=== PATIENT | female | born 1935 | race Caucasian/White ===

== ENCOUNTER → 2023-12-05 08:50 | Outpatient (REF) | payer BC, SELFPAY ==
[2023-12-05 10:26] LABS: Hematocrit 43.2 % (37.0-47.0); Hemoglobin 14.8 g/dL (12.0-16.0); Mean Corp Hgb Conc. 34.3 g/dL (33.0-37.0); Mean Corpuscular Hgb 28.4 pg (27.0-31.0); Mean Corpuscular Volume 82.9 fL (81.0-99.0); Mean Platelet Volume 9.4 fL (7.4-10.4); Platelet Count 273 10^3/uL (130-400); Red Blood Cell Count 5.21 10^6/uL (4.20-5.40); Red Cell Dist. Width 14.3 % (11.5-14.5); White Blood Cell Count 8.2 10^3/uL (4.8-10.8)
[2023-12-05 10:36] LABS: Uric Acid 4.3 mg/dl (2.5-6.2)
== END ==
LOC: OLABN 08:50
PROVIDERS: ATTENDING PHYSICIAN Student in an Organized Health Care Education/Training Program
DX: I10 Essential (primary) hypertension (principal)
CPT/HCPCS: 36415; 84550; 85027

== ENCOUNTER → 2023-12-08 10:28 | Outpatient (REF) | payer BC, SELFPAY ==
[2023-12-08 11:23] LABS: ALT (SGPT) 14 U/L (0-35); AST (SGOT) 20 U/L (14-36); Albumin 3.1 g/dl (3.5-5.0); Alkaline Phosphatase 51 U/L (38-126); Blood Urea Nitrogen 19 mg/dl (7-17); Calcium 9.3 mg/dl (8.4-10.2); Carbon Dioxide 22 mmol/L (22-30); Chloride 105 mmol/L (98-107); Glucose 106 mg/dl (70-99); Potassium 4.1 mmol/L (3.5-5.1); Sodium 138 mmol/L (135-145); Total Bilirubin 0.8 mg/dl (0.2-1.3); eGFR > 60.00
== END ==
LOC: OLABN 10:28
PROVIDERS: ATTENDING PHYSICIAN Student in an Organized Health Care Education/Training Program
DX: I10 Essential (primary) hypertension (principal)
CPT/HCPCS: 36415; 80053

== ENCOUNTER 2023-12-27 06:23 | Day surgery (SDC) | payer OTHER, SELFPAY ==
[2023-12-27] VITALS (14 sets, daily range): BP systolic 136–176; BP diastolic 66–89; BMI 27.5
[2023-12-27 07:21] LABS: Glucose - Point of Care 113 mg/dl (70-99)
[2023-12-27 09:29] LABS: Glucose - Point of Care 152 mg/dl (70-99)
--- NOTE | 2023-12-27 11:02 | ITS.CL.ABL ---
[employer] Consultant - Ablation
Ablation
Procedure Report:
Atrio-Ventricular Junction Ablation:
Ms. Bhatti is a very pleasant�88 yr old woman with medical history significant for permanent atrial fibrillation s/p single chamber PPM placement 03/21/23. She is recommended for AV node ablation for control of her atrial fibrillation rapid
ventricular response.
Date of the Procedure:
12/27/2023
Indications:
Permanent atrial fibrillation and rapid ventricular response
�
Pre-Operative Diagnosis:
Permanent atrial fibrillation and rapid ventricular response
�
Post-Operative Diagnosis:
Permanent atrial fibrillation and rapid ventricular response
�
Procedure Performed:
AVJ / AV nacny ablation
�
Performing Physician:
Mitul Hampton MD
�
Anesthesia:
See anesthesia records
�
Detailed Description of the Procedure:
Written informed consent was obtained from the patient after a full explanation of the risks and benefits of the procedure including the risks of sedation and anesthesia. The patient was brought to the electrophysiology laboratory in stable
condition in fasting state. Continuous electrocardiographic and hemodynamic monitoring was initiated.
The initial rhythm was atrial fibrillation.
The procedure site was meticulously prepared with surgical scrub and allowed to dry with no pooling. Sterile draping was applied to cover the procedure site. The image intensifier was draped with sterile bag and positioned over the patient.
Device interrogation and modifications:
The device was interrogated. The PPM is working normally with adequate threshold of 0.75 V @ 0.4ms. The PPM was switched to VVI 60 bpm.
The device remained like this throughout the entire procedure and was turned back to home setting at the end of the case @VVIR 60 bpm.
Sheath and Catheter Placement:
After infusion of local anesthetic, vascular access was obtained under ultrasound guidance and sheaths were placed over guide wire as detailed below.
�
Sheaths:
��������������� - 8 Fr sheath in right femoral vein
�
Catheters:
��������������� - Saphire 4 mm ablation catheter
�
Following the sheath placement, EP study was done to identify the His location.� Patient is on the chronic anticoagulation. Heparin 3000 units were given.
The EP study showed atrial fibrillation and His location was identified. RV lead was pacing adequately with AF with AV nancy conduction noted.
�
AV nancy ablation:
Cardiac anatomy as established. HIS cloud was established. The triangle of Herzog was marked with ablation catheter.
Using Sapphire catheter (4mm -non-irrigated radiofrequency ablation catheter), the catheter was placed at the His locations and using 50watts of energy at 50degree temperature, the AV node was ablated for 45 seconds. The atrial fibrillation with AV
conduction stopped and patient was paced in the RV via the RV pacing lead. Further additional consolidation lesions were applied around that area.
Patient was observed for 15-20 minutes with no sign of AV node recovery.
Post Ablation EP study:
The EP study was done via the device and atrial fibrillation noted at the atrium and RV pacing with no AV conduction.
The device was reprogrammed to its initial settings. Patient was noted to be RV paced without any irregular heartbeat.
Procedure End
Following the completion of the procedure, the catheter was removed. The sheaths were removed and hemostasis achieved manual compression and a fig of 8 suture was applied.
Recommendations:
��������������� Continue home medications
�
Estimated Blood loss:
<5 cc
�
Specimens Removed:
None.
�
Implants / Devices:
None
�
Urine output:
None
�
Packs / Drains/ Tubes:
None
�
Instrument / Sponge Count Correct:
Yes
�
Complications of the Procedure:
None
�
Condition of Patient at Time of Transfer:
Hemodynamically stable with no neurological or vascular compromise.
�
Summary:
Successful AV nancy ablation
== END 2023-12-27 12:55 | disposition home or self-care (01) ==
LOC: CATH 06:23
PROVIDERS: ATTENDING PHYSICIAN Internal Medicine Cardiovascular Disease; FAMILY PHYSICIAN Student in an Organized Health Care Education/Training Program
DX: I48.21 Permanent atrial fibrillation (principal); I10 Essential (primary) hypertension; E78.5 Hyperlipidemia, unspecified; Z95.0 Presence of cardiac pacemaker; E11.9 Type 2 diabetes mellitus without complications; K21.9 Gastro-esophageal reflux disease without esophagitis; Z79.01 Long term (current) use of anticoagulants; Z79.84 Long term (current) use of oral hypoglycemic drugs
CPT/HCPCS: C1894; C1733; 76937; 82962; 93005; 93650

== ENCOUNTER → 2024-01-17 10:44 | Outpatient (REF) | payer OTHER, SELFPAY ==
[2024-01-17 11:06] LABS: Blood Urea Nitrogen 21 mg/dl (7-17); Calcium 9.2 mg/dl (8.4-10.2); Carbon Dioxide 23 mmol/L (22-30); Chloride 105 mmol/L (98-107); Glucose 95 mg/dl (70-99); Potassium 3.7 mmol/L (3.5-5.1); Sodium 136 mmol/L (135-145); eGFR > 60.00
== END ==
LOC: OLABN 10:44
PROVIDERS: ATTENDING PHYSICIAN Student in an Organized Health Care Education/Training Program
DX: I10 Essential (primary) hypertension (principal)
CPT/HCPCS: 36415; 80048

== ENCOUNTER → 2024-01-18 10:31 | Outpatient (REF) | payer OTHER, SELFPAY ==
[2024-01-18 12:10] LABS: Glycohemoglobin (HgbA1c) 6.6 % (4.0-5.6)
== END ==
LOC: OLABN 10:31
PROVIDERS: ATTENDING PHYSICIAN Student in an Organized Health Care Education/Training Program
DX: E11.40 Type 2 diabetes mellitus with diabetic neuropathy, unspecified (principal); Z79.84 Long term (current) use of oral hypoglycemic drugs
CPT/HCPCS: 36415; 83036

== ENCOUNTER → 2024-03-19 12:13 | Outpatient (REF) | payer OTHER, SELFPAY ==
[2024-03-19 13:44] LABS: Blood Urea Nitrogen 19 mg/dl (7-17); Calcium 9.5 mg/dl (8.4-10.2); Carbon Dioxide 19 mmol/L (22-30); Chloride 109 mmol/L (98-107); Glucose 93 mg/dl (70-99); Sodium 138 mmol/L (135-145); eGFR > 60.00
== END ==
LOC: OLABN 12:13
PROVIDERS: ATTENDING PHYSICIAN Student in an Organized Health Care Education/Training Program
DX: I10 Essential (primary) hypertension (principal)
CPT/HCPCS: 36415; 80048

== ENCOUNTER → 2024-04-18 11:08 | Outpatient (REF) | payer OTHER, SELFPAY | LOC: OLABN 11:08 | PROVIDERS: ATTENDING PHYSICIAN Student in an Organized Health Care Education/Training Program | DX: Z00.00 Encounter for general adult medical examination without abnormal findings (principal); Z79.84 Long term (current) use of oral hypoglycemic drugs | CPT/HCPCS: 36415; 83036 ==

== ENCOUNTER → 2024-05-02 10:22 | Outpatient (REF) | payer OTHER, SELFPAY ==
[2024-05-02 12:23] LABS: ALT (SGPT) 13 U/L (0-35); AST (SGOT) 19 U/L (14-36); Albumin 3.4 g/dl (3.5-5.0); Alkaline Phosphatase 52 U/L (38-126); Blood Urea Nitrogen 17 mg/dl (7-17); Calcium 9.5 mg/dl (8.4-10.2); Carbon Dioxide 22 mmol/L (22-30); Chloride 109 mmol/L (98-107); Glucose 85 mg/dl (70-99); Magnesium 1.7 mg/dl (1.6-2.3); Potassium 4.1 mmol/L (3.5-5.1); Sodium 139 mmol/L (135-145); Total Bilirubin 0.7 mg/dl (0.2-1.3); eGFR > 60.00
[2024-05-02 12:35] LABS: NT-proBNP 1560 pg/ml
== END ==
LOC: OLABN 10:22
PROVIDERS: ATTENDING PHYSICIAN Student in an Organized Health Care Education/Training Program
DX: I48.19 Other persistent atrial fibrillation (principal)
CPT/HCPCS: 36415; 80053; 83735; 83880

== ENCOUNTER 2024-05-07 22:32 | Inpatient (IN) | payer OTHER, SELFPAY ==
[2024-05-07] VITALS (8 sets, daily range): BP systolic 130–166; BP diastolic 45–59; BMI 35.7; BMI 35.0
--- NOTE | 2024-05-07 19:11 | ED.GENMED ---
History of Present Illness
General
Chief Complaint: Skin Problem
Source: patient
Exam Limitations: none
Time Seen by Provider: 05/07/24 18:56
History of Present Illness
History of Present Illness:
See MDM
Past History
Past History
ED Past Medical History: Arrthythmia, GERD, HTN, Hypercholesterolemia and NIDDM
ED Past Surgical History: Cardiac
Social History
Tobacco: Non-smoker
Alcohol: None
Phy Exam
Physical Exam
Physical Exam:
See MDM
Course
Orders/Labs/Results
Orders:
Orders
05/07/24 19:11
CeFAZolin 2 GRAM [Ancef] 2 grams in 10 ml IV NOW
05/07/24 19:52
Complete Blood Count/With Diff Urgent
Lactic Acid Q4H
Comment: CANCEL 2nd LACTIC ACID IF 1st LACTIC ACID IS LESS THAN 2
Blood Culture Urgent
ABDULLAHI Source: Blood/Venous
Specimen Description:
05/07/24 20:19
0.9% Sodium Chloride 1000 ml [Nss] 1,000 ml IV BOLUS
05/07/24 20:23
Basic Metabolic Panel Urgent
05/07/24 20:55
Dextrose 50%-Water [Dextrose 50% Syringe] 25 grams IV NOW STA
Abnormal Lab Results
05/07/24 05/07/24
19:52 20:23
WBC 21.7 H 10^3/uL
(4.8-10.8)
RDW 14.8 H %
(11.5-14.5)
Abs Immat Gran (auto) 0.2 H 10^3/uL
(0-0.05)
Absolute Neuts (auto) 18.5 H 10^3/uL
(1.4-6.5)
Absolute Monos (auto) 1.5 H 10^3/uL
(0.1-0.6)
Immature Gran % 0.8 H %
(0-0.5)
Neutrophils % 85.1 H %
(42.2-75.2)
Lymphocytes % 6.8 L %
(20.5-51.1)
Sodium 134 L mmol/L
(135-145)
Chloride 109 H mmol/L
(98-107)
Carbon Dioxide 15 L mmol/L
(22-30)
BUN 27 H mg/dl
(7-17)
Glucose < 30 L* mg/dl
(70-99)
05/07/24 19:52
05/07/24 20:23
Vital Signs
Initial and Last Documented VS:
Initial Vital Signs
Temp Pulse Resp BP Pulse Ox
98.4 F 60 20 166/55 98
05/07/24 17:08 05/07/24 17:08 05/07/24 17:08 05/07/24 17:08 05/07/24 17:08
Last Documented Vital Signs
Temp Pulse Resp BP Pulse Ox
98.4 F 60 25 160/57 95
05/07/24 17:08 05/07/24 20:45 05/07/24 20:45 05/07/24 20:20 05/07/24 20:45
MDM/Problems Addressed
Differential Diagnosis Includes:
HPI and MDM Narrative:
88-year-old female presenting for evaluation of swelling and redness to her left leg. This been ongoing for couple days. Family is concerned because there is a very large blister on the dorsum of the left foot. This has happened in the past that
has required antibiotics. They were going to start antibiotics today but the redness is starting to worsen
On exam, patient is weak and fatigued. She has large amount of cellulitis to the left leg with large blistering to the dorsum of her left foot. The blister was incised with #11 blade and a large amount of yellow serosanguineous fluid was removed
Given the amount of cellulitis, will start IV antibiotics and admit
Physical exam
General: Weak and fatigued
HEENT: protecting airway
Neck: appears supple
CV: No evidence of cyanosis
Resp: No accessory muscle use
Abd: Non-distended
Extremities: No deformities
Neuro: Sleepy but no focal neurodeficits
Psych: Flat affect
Skin: Cellulitis to left leg from knee down with large blistering to left foot. Blistering measuring about 10 cm x 10 cm. Negative Nikolsky sign
Problems Addressed including Acute and Chronic Conditions affecting care:
1. Left leg cellulitis
Acuity: acute
Prognosis: stable
Details: Given the amount of cellulitis and the recent increase in erythema, will start IV antibiotics admit. The blister was incised to relieve the pressure
2. Hyperglycemia
Acuity: acute
Prognosis: unstable
Details: Given the hypoglycemia, patient given amp of dextrose.
Updates
Patient found to be hypoglycemic. Her mental status is declining. Patient given dextrose
Differential Diagnosis (but not limited to): Cellulitis, pemphigoid, gout
Testing considered: X-ray
Drug therapy (if applicable): OTC meds, please see d/c instruction regarding Rx drugs
Amount and/or Complexity of Data Reviewed
Clinical info obtained from: Daughter's
External data reviewed: N/A
Labs I independently reviewed (but not limited to): Leukocytosis, hyperglycemia
Radiology: N/A
Pulse Ox: not hypoxic
EKG independently reviewed: N/A
Button Decorating Machine Operator: Paced rhythm
Critical Care: N/A
Risk of Complication:
Social Determinants of health: Good social support
Discussed with other providers: Hospitalist
Escalation of Care includes Admit/Obs: Given the worsening cellulitis and now with hyperglycemia, will admit
Occasional wrong word or 'sound a like' substitutions may have occurred due to the inherent limitations of voice recognition software. Read the chart carefully and recognize, using context, where substitutions have occurred.
*Critical Care Note
Total Time (30-74mins, 75-104mins- exclusive of procedures): Not Applicable
ED Attending Note
-
Portions of this chart may have been created with voice recognition software.� Occasional wrong word or��sound alike� substitutions may have occurred due to the inherent limitations of voice recognition software.
Discharge Plan
Departure
Patient Disposition: Admit
Date of Disposition: 05/07/24
Time of Disposition: 20:58
Admit to: Telemetry
Presentation/result/management discussed w/ accepting MD/DO: Hospitalist
Discharge Problem:
Cellulitis of leg, Hypoglycemia
Prescriptions:
No Action
latanoprost 0.005 % Drops
1 drp BOTH EYES HS
atorvastatin 40 mg Tablet
40 mg PO QPM
acetaminophen 325 mg Tablet
650 mg PO Q4HPRN PRN (Reason: mild pain/fever>100.4)
magnesium hydroxide [Milk of Magnesia] 400 mg/5 mL Suspension
30 ml PO DAILYPRN PRN (Reason: if no bm x 2 days)
bisacodyl [Dulcolax (bisacodyl)] 10 mg Suppository
10 mg IA DAILYPRN PRN (Reason: if mom ineffective)
nitroglycerin [Nitrostat] 0.4 mg Tablet, Sublingual
0.4 mg SUBLINGUAL Q5MX3 PRN (Reason: chest pain)
dorzolamide-timolol [Cosopt] 22.3-6.8 mg/mL Drops
1 drp BOTH EYES BID@
fenofibrate 160 mg Tablet
160 mg PO HS
apixaban 5 mg Tablet
5 mg PO BID@
potassium chloride 20 mEq Tablet Extended Release
40 meq PO DAILY
metformin 500 mg Tablet
500 mg PO BID@0830,1830
glipizide 5 mg tablet extended release 24hr
5 mg PO DAILY
benazepril 10 mg tablet
10 mg PO DAILY 30 Days Qty: 30 0RF
hydralazine 10 mg tablet
10 mg PO TID@0830,1330,1830
meclizine 12.5 mg Tablet
12.5 mg PO [id number] PRN (Reason: dizziness)
famotidine 20 mg tablet
20 mg PO HS
amlodipine 10 mg tablet
10 mg PO DAILY
cephalexin 500 mg capsule
500 mg PO Q6H
Rx Instructions:
@ 0000, 0600, 1200, 1800
furosemide 20 mg tablet
20 mg PO DAILYPRN PRN (Reason: edema)
fluticasone propionate 50 mcg/actuation Iselin,Suspension
1 spray INTRANASAL TIDPRN PRN (Reason: nasal congestion)
Saccharomyces boulardii 250 mg Capsule
250 mg PO BID
Referrals:
Preston Rivero DO [Family Provider] -
Interventions
Interventions:
*Risk Screen - Suicide Last Done: 05/07/24 17:08
*General Assessment Last Done: 05/07/24 17:08
*Neglect/Abuse Screening Last Done: 05/07/24 17:08
ED- Fall Risk Assessment Last Done: 05/07/24 17:13
*ED COVID-19 Vaccine History Last Done: 05/07/24 17:08
ED-Skin Assessment Last Done: 05/07/24 17:13
Discharge Date and Time
Print Language: MALAY
[2024-05-07] MEDS: ANCEF 10 IV (19:49)
[2024-05-07 19:59] LABS: % Basophils 0.3 % (0-2); % Eosinophils 0.2 % (0-6); % Immature Granulocytes 0.8 % (0-0.5); % Lymphocytes 6.8 % (20.5-51.1); % Monocytes 6.8 % (1.7-9.3); % Neutrophils 85.1 % (42.2-75.2); Absolute Basophils 0.1 10^3/uL (0-0.2); Absolute Immature Granulocytes 0.2 10^3/uL (0-0.05); Absolute Lymphocytes 1.5 10^3/uL (1.2-3.4); Absolute Monocytes 1.5 10^3/uL (0.1-0.6); Absolute Neutrophils 18.5 10^3/uL (1.4-6.5); Hematocrit 41.4 % (37.0-47.0); Hemoglobin 13.9 g/dL (12.0-16.0); Mean Corp Hgb Conc. 33.6 g/dL (33.0-37.0); Mean Corpuscular Hgb 27.8 pg (27.0-31.0); Mean Corpuscular Volume 82.8 fL (81.0-99.0); Nucleated Red Blood Cells % 0 %; Platelet Count 300 10^3/uL (130-400); Red Cell Dist. Width 14.8 % (11.5-14.5); White Blood Cell Count 21.7 10^3/uL (4.8-10.8)
[2024-05-07] MEDS: NSS 1000 IV (20:51)
[2024-05-07 20:55] LABS: Blood Urea Nitrogen 27 mg/dl (7-17); Calcium 8.8 mg/dl (8.4-10.2); Carbon Dioxide 15 mmol/L (22-30); Chloride 109 mmol/L (98-107); Estimated Creatinine Clearance 47 ml/min; Glucose < 30 mg/dl (70-99); Sodium 134 mmol/L (135-145); eGFR > 60.00
[2024-05-07] MEDS: DEXTROSE 50% SYRINGE 25 GRAMS IV (20:56)
--- NOTE | 2024-05-07 21:10 | HPS.HSE ---
Family Physician
-
Family Physician: Preston Rivero, DO
Chief Complaint
-
Erythematous foot to left upper leg with large dorsal blister and pain
History of Present Illness
88-year-old female from [facility] who states she noticed left foot pain today with a large blister and extending erythema up her entire left leg. Her daughter reports she saw her on Tuesday 3 days ago and did not
notice any erythema although the patient was wearing socks. Patient does have profound peripheral neuropathy. She uses a wheelchair to transfer with help of 1. She denies fever, chills, injury, chest pain complication, shortness of, cough,
abdominal pain, nausea, vomiting, diarrhea, urinary symptoms.
She has past medical history permanent A-fib, moderate aortic stenosis, single-chamber permanent pacemaker placement secondary to complete heart block 03/21/2023, DM2, chronic pain syndrome, HTN, HLD, GERD, chronic ambulatory dysfunction, memory
impairment per family, chronic visual impairment, history of UTIs with History of M. Morganii/Enterococcus faecalis UTI 03/24/2023 with multiple drug resistance, glaucoma, macular degeneration left eye, obesity
Medical History
Past Medical History
Past Medical History: Reports Other
Additional Past Medical History:
permanent A-fib
moderate aortic stenosis
single-chamber permanent pacemaker placement secondary to complete heart block 03/21/2023
DM2,
chronic pain syndrome
HTN
HLD
GERD
chronic ambulatory dysfunction
Chronic memory impairment per family
chronic visual impairment
history of UTIs with History of M. Morganii/Enterococcus faecalis UTI 03/24/2023 with multiple drug resistance
Past Surgical History: Reports Other
Additional Past Surgical History:
Knee replacement
single-chamber permanent pacemaker placement secondary to complete heart block 03/21/[address] wellington
Social History
Tobacco: Non-smoker
Alcohol: None
Drug: None
Personal: Single
Living: Intermediate ([facility])
Employment: Retired
Family History
Family History: Other (Mother age 75 heart disease also history of DM 2, father age 88 heart disease)
Allergies / Home Medications
Allergies reflects when Allergies were last updated in [employer].
Home Medications with original date entered in [employer]
Allergy/Medication List:
Allergies
Allergy/AdvReac Type Severity Reaction Status Date / Time
No Known Allergies Allergy Verified 05/07/24 17:08
Home Medications
acetaminophen 325 mg tablet 650 mg PO Q4HPRN PRN mild pain/fever>100.4 03/08/23
apixaban 5 mg tablet 5 mg PO BID@08,1829 Blood clot prevention/tx 03/08/23
atorvastatin 40 mg tablet 40 mg PO QPM High cholesterol 03/08/23
bisacodyl 10 mg rectal suppository (Dulcolax (bisacodyl)) 10 mg KS DAILYPRN PRN if mom ineffective 03/08/23
dorzolamide 22.3 mg-timolol 6.8 mg/mL eye drops (Cosopt) 1 drp BOTH EYES BID@08,183 Eye condition 03/08/23
fenofibrate 160 mg tablet 160 mg PO HS High cholesterol 03/08/23
latanoprost 0.005 % eye drops 1 drp BOTH EYES HS Eye condition 03/08/23
magnesium hydroxide 400 mg/5 mL oral suspension (Milk of Magnesia) 30 ml PO DAILYPRN PRN if no bm x 2 days 03/08/23
nitroglycerin 0.4 mg sublingual tablet (Nitrostat) 0.4 mg sublingual Q5MX3 PRN chest pain 03/08/23
potassium chloride 20 mEq tablet,extended release 40 meq PO DAILY Electrolyte Repletion 03/08/23
glipizide 5 mg tablet, extended release 24 hr 5 mg PO DAILY Diabetes 03/20/23
metformin 500 mg tablet 500 mg PO BID@08,1829 Diabetes 03/20/23
benazepril 10 mg tablet 10 mg PO DAILY Blood pressure 30 days #30 tabs 03/23/23
Saccharomyces boulardii 250 mg capsule 250 mg PO BID 05/07/24
amlodipine 10 mg tablet 10 mg PO DAILY 05/07/24
cephalexin 500 mg capsule 500 mg PO Q6H 05/07/24
famotidine 20 mg tablet 20 mg PO HS 05/07/24
fluticasone propionate 50 mcg/actuation nasal spray,suspension 1 spray intranasal TIDPRN PRN nasal congestion 05/07/24
furosemide 20 mg tablet 20 mg PO DAILYPRN PRN edema 05/07/24
hydralazine 10 mg tablet 10 mg PO TID@0830,1330,1830 05/07/24
meclizine 12.5 mg tablet 12.5 mg PO [id number] PRN dizziness 05/07/24
Review of Systems
-
History Source: Patient and Family (Daughters Adamaris and Judy at bedside)
A 12 point ROS was completed and negative except as noted: Yes
Constitutional: Denies Fever or Fatigue
EENT: Denies Runny Nose
Respiratory: Denies Cough
Cardiac: Denies Chest Pain, Diaphoresis, Palpitations or Syncope
Abdomen/GI: Denies Abdominal Pain, Nausea, Vomiting, Diarrhea, Constipated or Bloody Stools
: Denies Dysuria, Frequency, Flank Pain, Incontinence or Difficulty Voiding
Musculoskeletal: Reports Edema (Large blister overlying dorsal aspect of left foot with extending erythema around foot and up three quarters of leg); Denies Joint Pain or Joint Swelling
Skin: Denies Itching or Rash
Neurological: Denies Dizzy, Headache or Weakness
Endocrine: Reports No Symptoms
Hematologic/Lymphatic: Reports No Symptoms
Psych: Reports Calm
Physical Exam
Vital Signs
Vital Signs
Temp Pulse Resp BP Pulse Ox
98.4 F 60 25 160/57 95
05/07/24 17:08 05/07/24 20:45 05/07/24 20:45 05/07/24 20:20 05/07/24 20:45
Physical Exam
General: Comfortable, Conversant and Pain (dorsal aspect left foot ); No Fever or Chills
HEENT: Anicteric, Moist mucous membranes, PERRLA and [place] Conjunctivae
Respiratory: Clear; No Wheezes, Rales or Rhonchi
Cardiac: S1/S2; No Murmur, Rub or Gallop
Breast: Deferred by me
GI: Soft, Non Tender, Non Distended, Normal Bowel Sounds and No Hepatosplenomegaly
Rectal: Deferred by Provider
Genito-urinary: Deferred by me
Musculoskeletal: No Clubbing, No Cyanosis, Edema, Left Lower Extremity (Large blister overlying dorsal aspect of left foot with extending erythema around foot and up three quarters of leg) and Edema, Right Lower Extremity (Chronic from PVD pigment
changes to right lower extremity no edema); No Edema, Left Upper Extremity or Edema, Right Upper Extremity
Skin: Warm, Dry and Other (Large blister overlying dorsal aspect of left foot with extending erythema around foot and up three quarters of leg, blister was lanced by ER provider with serosanguineous yellow drainage); No Rash or Jaundice
Neuro: AO x 3 (To name, place of living, daughters at bedside but not year), Nonfocal/grossly intact and Other (Chronic visual impairment bilateral eyes); No DTR's Intact & Symmetrical, Slurred Speech, Facial Droop or Tremors
Psych: Calm
Laboratory Results
-
05/07/24 19:52
05/07/24 20:23
Laboratory Results
Lactic Acid Cancelled 05/07/24 23:15
Total Bilirubin Cancelled 05/07/24 20:23
AST Cancelled 05/07/24 20:23
ALT Cancelled 05/07/24 20:23
Alkaline Phosphatase Cancelled 05/07/24 20:23
Impression/Plan
-
Impression/plan:
Admit to telemetry
#Acute hypoglycemia/DM 2
Blood sugar less than 30 treated with dextrose in ER Accu-Chek improved to 181 at bedside
Will follow Accu-Cheks every 2H until stable
-Hold metformin 500 mg twice daily, glipizide 5 mg daily
-Check HgbA1c, SSI low
# Sepsis 2/2 left leg cellulitis secondary to blister to dorsal foot in diabetic female
-Check foot x-ray
-Blister drained in ER
-Check blood culture x 1
-Check blister culture fluid
-IV Ancef
#A-fib permanent single-chamber placement 03/21/[address] Wellington 2/2 complete heart block
#Moderate aortic stenosis
2D echo 03/09/2023: EF 70%, mild LVH, hyperdynamic LV SF, no wall abnormalities, mild enlargement of right ventricle, mild dilated left and dilated right atrium, trace MR
#Chronic pain syndrome continue Lidoderm patch
#HTN-benign
BP 160/57
-Continue benazepril 10 mg daily, hydralazine 10 mg 3 times daily with hold parameters
#HLD
-Continue atorvastatin 40 mg every afternoon, fenofibrate 160 mg at bedtime
#GERD
-Continue Pepcid 20 mg at bedtime
#Chronic ambulatory dysfunction-uses wheelchair at baseline
-PT/OT/case management eval
#Chronic memory impairment per family reported-mild
Patient oriented to name, place of living [facility] daughters Adamaris and Judy but not year
#Chronic visual impairment bilateral eyes
#glaucoma, macular degeneration left eye
-Continue Cosopt, latanoprost
#UTI history
History of M. Morganii/Enterococcus faecalis UTI 03/24/2023 with multiple drug resistance
#Obesity due to excess calorie consumption/immobility�BMI 35.7 kg
Low-fat diet weight loss recommended
DVT prophylaxis
Continue SERVICE ESTABLISHMENT ATTENDANT Eliquis
DNR per paper on chart with family at bedside
[2024-05-07 21:19] LABS: Glucose - Point of Care 181 mg/dl (70-99)
--- NOTE | 2024-05-07 21:50 | W.PN.UPDATE ---
Update Note
Progress Note Update
This note serves as an addendum to the H&P by senior payroll specialist GEORGE Tasha FATMATA
HPI
88F [place] Res, Diabetic neuropathy , WC bound pw Large Lt foot blister uncertain HX injury.
Hemodynamically stable
Afebrile
Significant LLEx painful erythema especially in dorsal foot
CC 21
lactate normal.
Noted BG 30 on arrival --> BG 181 s/p D50 one amp
ASSESSMENT & PLAN
Acute SSTI at LLEx cellulitis suspect infected traumatic foot blister with wheel chair
S/P drainage for of blister by ER attd - yellow serosanguineous clear drainage.
Hyperglycemia s/p D50 for hypoglycemia
T2DM
- IV Ancef
- add ISS low
PPM in 2022 for SSS
HX Perm AF on Eliquis
DVT Pxon Eliquis
DNR per [place] paper confirmed by andrewsters
IP TLM
[2024-05-07 23:45] LABS: Glucose - Point of Care 111 mg/dl (70-99)
[2024-05-08] VITALS (8 sets, daily range): BP systolic 140–190; BP diastolic 53–81; PULSE 61; O2SAT 96; BMI 35.7
[2024-05-08] MEDS: TRICOR 145 MG PO ×2 (00:13→22:45)
[2024-05-08] MEDS: PEPCID 20 MG PO ×2 (00:16→22:45)
[2024-05-08] MEDS: TYLENOL 650 MG PO ×2 (00:16→20:48)
[2024-05-08 03:32] LABS: Glucose - Point of Care 69 mg/dl (70-99)
--- NOTE | 2024-05-08 03:43 | PTCARENOTE ---
Receive pt from ER. Pt alert oriented to person and place, confused to time. Pt appears calm in no distress, states her left foot is very tender to the touch. Pt states that the pain is acing and is 8/10, but she thinks she doesn't need any pain
medicine if the foot is not touched. Pt pulled over to her bed from the stretcher. Pt oriented to the room, call eduardo within reach. Pt on V-paced on telemonitor. VSS (T=97.7, HR=61,RR=18, HR=663/45, SpO2=98% on RA). Left leg is red, and there is a
large blister on the left dorsal foot that is draining a large amount of serous drainage. Wound care given to the left foot, wound culture sent, and Tylenol given for pain. Will continue to monitor the pt.
[2024-05-08 03:56] LABS: Glucose - Point of Care 84 mg/dl (70-99)
[2024-05-08] MEDS: ANCEF 5 IV ×3 (03:59→20:27)
[2024-05-08 06:00] LABS: Glucose - Point of Care 94 mg/dl (70-99)
[2024-05-08 07:24] LABS: % Basophils 0.4 % (0-2); % Eosinophils 0.2 % (0-6); % Immature Granulocytes 0.7 % (0-0.5); % Lymphocytes 9.6 % (20.5-51.1); % Monocytes 8.7 % (1.7-9.3); % Neutrophils 80.4 % (42.2-75.2); Absolute Basophils 0.1 10^3/uL (0-0.2); Absolute Immature Granulocytes 0.1 10^3/uL (0-0.05); Absolute Lymphocytes 1.6 10^3/uL (1.2-3.4); Absolute Monocytes 1.4 10^3/uL (0.1-0.6); Hematocrit 35.6 % (37.0-47.0); Hemoglobin 11.9 g/dL (12.0-16.0); Mean Corp Hgb Conc. 33.4 g/dL (33.0-37.0); Mean Corpuscular Hgb 27.9 pg (27.0-31.0); Mean Corpuscular Volume 83.4 fL (81.0-99.0); Nucleated Red Blood Cells % 0 %; Red Blood Cell Count 4.27 10^6/uL (4.20-5.40); Red Cell Dist. Width 14.7 % (11.5-14.5); White Blood Cell Count 16.2 10^3/uL (4.8-10.8)
[2024-05-08 07:56] LABS: Blood Urea Nitrogen 22 mg/dl (7-17); Calcium 8.2 mg/dl (8.4-10.2); Carbon Dioxide 16 mmol/L (22-30); Chloride 110 mmol/L (98-107); Estimated Creatinine Clearance 53 ml/min; Glucose 75 mg/dl (70-99); Sodium 134 mmol/L (135-145); eGFR > 60.00
[2024-05-08 08:20] LABS: Glucose - Point of Care 76 mg/dl (70-99)
[2024-05-08] MEDS: NOVOLOG FLEXPEN-LOW RESISTANCE SC ×3 (08:25→17:03)
[2024-05-08] MEDS: NORVASC 10 MG PO (09:15)
[2024-05-08] MEDS: FLORASTOR 250 MG PO ×2 (09:15→20:39)
[2024-05-08] MEDS: ZESTRIL 10 MG PO (09:15)
[2024-05-08] MEDS: ELIQUIS 5 MG PO ×2 (09:16→17:38)
[2024-05-08] MEDS: COSOPT EYE DROPS 1 DROP BOTH EYES ×2 (09:19→17:41)
--- NOTE | 2024-05-08 09:25 | W.PN.HOSP.TC ---
Today's Communication/Plan
-
see A/P
Assessment / Plan
Assessment / Plan
HPI: 88-year-old female from [facility] with PMH permanent A-fib, moderate aortic stenosis, complete heart block s/p PPM, DM2, chronic pain syndrome, HTN, HLD, GERD, chronic ambulatory dysfunction, memory impairment per
family, chronic visual impairment, glaucoma, macular degeneration left eye, obesity; p/w left foot pain with a large blister and extending erythema up her entire left leg.
A/P:
# Sepsis POA 2/2 left leg cellulitis with blister to dorsal foot
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
Blister drained in ER, follow wound culture
Follow blood culture x 1
Cont IV Ancef, add Vancomycin
Wound care consulted
# hypoglycemia admission
# DM 2
Follow Accu-Cheks
Hold metformin 500 mg twice daily and glipizide 5 mg daily
Follow HgbA1c, SSI low
# Permanent A-fib
# Complete heart block s/p PPM placement
# Moderate aortic stenosis
2D echo 03/09/2023: EF 70%, mild LVH, hyperdynamic LV SF, no wall abnormalities, mild enlargement of right ventricle, mild dilated left and dilated right atrium, trace MR
# Chronic pain syndrome continue Lidoderm patch
# HTN urgency
Continue ENTRY LEVEL MECHANICAL ENGINEER Norvasc 10 mg daily, ACEI 10 mg daily, hydralazine 10 mg 3 times daily with hold parameters
# HLD
Continue atorvastatin 40 mg every afternoon, fenofibrate 160 mg at bedtime
# GERD
Continue Pepcid 20 mg at bedtime
# Chronic ambulatory dysfunction-uses wheelchair at baseline
PT/OT/case management eval
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
Patient oriented to name, place of living [facility], daughters Adamaris and Judy but not year
# Chronic visual impairment bilateral eyes
# glaucoma, macular degeneration left eye
Continue Cosopt, latanoprost
# h/o UTI
# Obesity due to excess calorie consumption/immobility
BMI 35
Low-fat diet weight loss recommended
DVT prophylaxis: Continue ENTRY LEVEL MECHANICAL ENGINEER Eliquis
DNR per paper on chart with family at bedside
DW daughter Adamaris on the phone
Anticipated Discharge: > 48 hours
Subjective/Interval History
-
Date of Service: May 08, 2024
Objective Data
-
Labs:
Laboratory Results
05/08/24
07:07
WBC 16.2 H
Hgb 11.9 L
Hct 35.6 L
Plt Count
Sodium 134 L
Potassium 5.0
Chloride 110 H
Carbon Dioxide 16 L
BUN 22 H
Creatinine 0.8
Glucose 75
Calcium 8.2 L
Vital Signs:
Vital Signs
Temp Pulse Resp BP Pulse Ox
36.8 C 61 24 190/81 97
05/08/24 07:11 05/08/24 09:15 05/08/24 07:11 05/08/24 09:15 05/08/24 07:11
I&O
05/07/24 05/08/24 05/09/24
06:59 06:59 06:59
Intake Total 480 / 480
Balance 480 / 480
Review of Systems
-
All other systems: Reviewed and negative
Skin: Reports Rash (L leg)
Physical Exam
-
General: Well Developed, Well Nourished, No Apparent Distress, Comfortable, Appears Chronically Ill and Obese
HEENT: Normocephalic and Atraumatic
Respiratory: Clear to Auscultation and Non Labored Respirations; Negative Accessory Resp Muscle Use
Cardiac: Regular Rhythm and S1/S2; Negative Murmur
GI: Soft, Nontender, Nondistended and Normal Bowel Sounds
Musculoskeletal: No Clubbing and No Cyanosis
Skin: Rash (L leg) and Other (see wound care note )
Neuro: Awake and Alert
Psych: Calm
Data Reviewed
-
Labs: Labs Reviewed by me
--- NOTE | 2024-05-08 09:35 | PHA.VAN.IN ---
Assessment
- Assessment
Renal Function: Appears similar to baseline
Concomitant Antimicrobials: cefazolin
AUC Dosing Plan
- Dosing Variables
Dosing Weight (kg): 90
Dosing CrCl (ml/min): 53
Vd coefficient (L/kg): 0.6
- Empiric Dosing
Initial / Loading Dose: 1500mg - administration pending
Maintenance Regimen: Vanc 1250mg Q24H starting 05/09 600
Estimated AUC (mcg*h/mL): 496
Estimated Peak (mcg*h/mL): 33.7
Estimated Trough (mcg/ml): 11.3
Estimated Half Life (H): 14.3
- Monitoring
No levels ordered at this time: consider levels in next few days
Pharmacokinetics Vancomycin I
- -
Patient Age: 88
Patient Sex: Female
Vancomycin Day #: 1
Indication: Skin And Soft Tissue
Requesting Provider: Dr. Rocha
Pertinent Antimicrobial Allergies:
NKDA
Height / Weight:
Height 5 ft 3 in
Actual Weight 89.5 kg
Pertinent Past Medical History: BMI ~35, wheelchair bound, DM 2
- Vital Signs / Lab Results
Temp Pulse Resp BP Pulse Ox
98.2 F 61 24 190/81 97
05/08/24 07:11 05/08/24 09:15 05/08/24 07:11 05/08/24 09:15 05/08/24 07:11
Lab Results - Hematology
05/07/24 05/08/24
19:52 07:07
WBC 21.7 H 16.2 H
Lab Results - Chemistry
05/07/24 05/07/24 05/08/24
19:52 20:23 07:07
BUN Cancelled 27 H 22 H
Creatinine Cancelled 0.9 0.8
Estimated Creat Clear Cancelled 47 53
Albumin Cancelled Cancelled
05/07/24 05/07/24
19:52 23:15
Lactic Acid 1.0 Cancelled
Microbiology Results
05/08/24 00:32 Gram Stain - Preliminary
Foot - Left
--- NOTE | 2024-05-08 10:00 | WOUNDNOTE ---
WON RN note: Patient admitted with L leg cellulitis.
See H&P for complete history. [place] [facility]
PMH: NIDDM,HTN,UTI, A Fib-Eliquis, diabetic neuropathy, L knee replacement and ambulatory dysfunction.
Wound Location and type/assessment: Patient admitted with: L dorsal foot blister and cellulitis of leg, blister lanced in ER. L foot with large amt serous drainage leaking out of blister, some areas with clear gel like consistency under blister.
[facility] where blister lanced, leg red and warm, painful to touch. + Audible pulses with Doppler on L foot, R foot palpable pedal pulses. Patient able to turn self with minimal assist, sacrum and heels blanchable red.
Appetite: Fair, encouraged to increase protein intake along with nurse Murrieta.
Pressure redistribution devices in place: On [employer]a bed, recliner chair, air cushion provided when oob.
Plan: Applied adaptic, alginate, gauze, ABD pad and kerlix recommend twice a day dressing changes until drainage less then once a day. Leg elevated with 2 pillows, nurse Glenny assisted. When oob elevate legs in recliner chair with pillows under L
leg. Patient unable to tolerate compression at this time, too painful. Confirmed wound care and compression with stewart wrap with Dr. Rocha. Recommend stewart wrap start tomorrow when tolerated. Updated nurse Glenny. Updated care plan and will follow as
needed.
Note to case management of equipment requested for discharge: None.
Recommend follow up at wound care center upon discharge.
[2024-05-08] MEDS: VANCOCIN 300 ML IV (10:13)
[2024-05-08] MEDS: VANCOCIN 300 MG IV (10:13)
--- NOTE | 2024-05-08 11:42 | CM ---
Patient seen asleep bedside. CM spoke with admissions from [facility], patient is LTC resident on a bed hold, will need auth for SNF prior to returning to [facility]. Per chart, patient typically transfer of one from wheelchair. Patient PCP
Mat, pharmacy used is [facility]. PT recommending SNF, patient currently an assist of two. CM will send referral in [facility], will update [facility] on patients discharge status. CM will continue to follow for all discharge planning needs.
Plan; return to [facility], on bed hold, will need auth to return skilled.
[2024-05-08 12:19] LABS: Glucose - Point of Care 108 mg/dl (70-99)
[2024-05-08] MEDS: APRESOLINE 10 MG PO ×2 (12:33→17:38)
[2024-05-08 17:03] LABS: Glucose - Point of Care 104 mg/dl (70-99)
[2024-05-08] MEDS: LIPITOR 40 MG PO (17:38)
[2024-05-08 21:41] LABS: Glucose - Point of Care 132 mg/dl (70-99)
[2024-05-09 03:35] VITALS: BP 145/63
[2024-05-09] MEDS: ANCEF 5 IV ×3 (03:44→19:55)
[2024-05-09] MEDS: VANCOCIN 275 MG IV (05:12)
[2024-05-09] MEDS: TYLENOL 650 MG PO ×3 (05:27→17:58)
[2024-05-09 06:00] VITALS: BMI 35.0
[2024-05-09 07:38] LABS: Glucose - Point of Care 123 mg/dl (70-99)
[2024-05-09 07:59] LABS: % Basophils 0.4 % (0-2); % Eosinophils 0.8 % (0-6); % Immature Granulocytes 1.1 % (0-0.5); % Monocytes 7.2 % (1.7-9.3); % Neutrophils 78.5 % (42.2-75.2); Absolute Basophils 0.1 10^3/uL (0-0.2); Absolute Eosinophils 0.1 10^3/uL (0-0.7); Absolute Immature Granulocytes 0.2 10^3/uL (0-0.05); Absolute Lymphocytes 1.6 10^3/uL (1.2-3.4); Absolute Monocytes 0.9 10^3/uL (0.1-0.6); Absolute Neutrophils 10.3 10^3/uL (1.4-6.5); Hematocrit 34.4 % (37.0-47.0); Hemoglobin 11.6 g/dL (12.0-16.0); Mean Corp Hgb Conc. 33.7 g/dL (33.0-37.0); Mean Corpuscular Hgb 28.3 pg (27.0-31.0); Mean Corpuscular Volume 83.9 fL (81.0-99.0); Mean Platelet Volume 9.1 fL (7.4-10.4); Nucleated Red Blood Cells % 0 %; Platelet Count 256 10^3/uL (130-400); Red Cell Dist. Width 14.7 % (11.5-14.5); White Blood Cell Count 13.1 10^3/uL (4.8-10.8)
[2024-05-09 08:54] VITALS: BP 151/67
[2024-05-09 09:20] LABS: Blood Urea Nitrogen 21 mg/dl (7-17); Calcium 8.4 mg/dl (8.4-10.2); Carbon Dioxide 16 mmol/L (22-30); Chloride 113 mmol/L (98-107); Estimated Creatinine Clearance 53 ml/min; Glucose 111 mg/dl (70-99); Potassium 4.6 mmol/L (3.5-5.1); Sodium 135 mmol/L (135-145); eGFR > 60.00
[2024-05-09] MEDS: NOVOLOG FLEXPEN-LOW RESISTANCE SC (09:33)
[2024-05-09] MEDS: APRESOLINE 10 MG PO ×3 (09:41→17:57)
[2024-05-09] MEDS: FLORASTOR 250 MG PO ×2 (09:41→19:55)
[2024-05-09] MEDS: ZESTRIL 10 MG PO (09:41)
[2024-05-09] MEDS: ELIQUIS 5 MG PO ×2 (09:41→17:58)
[2024-05-09] MEDS: COSOPT EYE DROPS 1 DROP BOTH EYES ×2 (09:42→17:57)
[2024-05-09] MEDS: NORVASC 10 MG PO (09:42)
--- NOTE | 2024-05-09 09:46 | PHA.VAN.FU ---
Vancomycin Assessment / Plan
- Assessment
Renal Function: Stable
WBC's are: Trending Down
In the past 24 hrs, patient has been: Afebrile
Concomitant Antimicrobials: cefazolin
- Dosing Plan
Continue: Vanc 1250mg Q24H
- Monitoring Plan
No level(s) ordered at this time: consider levels in next few days
- Follow Up
Pharmacy will continue to follow.
Vancomycin Follow UP
- -
Patient Age: 88
Patient Sex: Female
Vancomycin Day #: 2
Indication: Skin And Soft Tissue
Requesting Provider: Dr. Rocha
Pertinent Antimicrobial Allergies:
NKDA
Height / Weight:
Height 5 ft 3 in
Actual Weight 89.6 kg
Pertinent Past Medical History: BMI ~35, wheelchair bound, DM 2
- Vital Signs / Lab Results
Temp Pulse Resp BP Pulse Ox
98 F 62 20 151/67 96
05/09/24 08:54 05/09/24 08:54 05/09/24 08:54 05/09/24 09:42 05/09/24 08:54
Lab Results - Hematology
05/07/24 05/08/24 05/09/24
19:52 07:07 07:50
WBC 21.7 H 16.2 H 13.1 H
Lab Results - Chemistry
05/07/24 05/07/24 05/08/24
19:52 20:23 07:07
BUN Cancelled 27 H 22 H
Creatinine Cancelled 0.9 0.8
Estimated Creat Clear Cancelled 47 53
Albumin Cancelled Cancelled
05/09/24
07:50
BUN 21 H
Creatinine 0.8
Estimated Creat Clear 53
Albumin
05/07/24 05/07/24
19:52 23:15
Lactic Acid 1.0 Cancelled
Microbiology Results
05/08/24 00:29 MRSA Screen - Final
Nose No Methicillin Resistant Staphylococcus aureus isolated.
05/07/24 19:52 Blood Culture - Preliminary
Blood/Venous No Growth in 24 hours- Final report to follow
05/08/24 00:32 Gram Stain - Preliminary
Foot - Left
[2024-05-09 11:11] VITALS: BP 142/59
--- NOTE | 2024-05-09 11:21 | W.PN.HOSP.TC ---
Today's Communication/Plan
-
see A/P
Assessment / Plan
Assessment / Plan
HPI: 88-year-old female from [facility] with PMH permanent A-fib, moderate aortic stenosis, complete heart block s/p PPM, DM2, chronic pain syndrome, HTN, HLD, GERD, chronic ambulatory dysfunction, memory impairment per
family, chronic visual impairment, glaucoma, macular degeneration left eye, obesity; p/w left foot pain with a large blister and extending erythema up her entire left leg.
A/P:
# Sepsis POA 2/2 left leg cellulitis with blister to dorsal foot
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
Blister drained in ER, follow wound culture
blood culture negative
Cont IV Ancef, Vancomycin
Wound care consulted
# hypoglycemia admission
# DM 2
A1C 6.0% from 03/2024
Hold metformin 500 mg twice daily during hospital stay
Would discontinue ACUTE [employer]IST glipizide 5 mg daily going forward
cover with ISS
# Permanent A-fib
# Complete heart block s/p PPM placement
# Moderate aortic stenosis
2D echo 03/09/2023: EF 70%, mild LVH, hyperdynamic LV SF, no wall abnormalities, mild enlargement of right ventricle, mild dilated left and dilated right atrium, trace MR
# Chronic pain syndrome continue Lidoderm patch
# HTN urgency , resolved
BP stable on ACUTE SPECIALIST Norvasc 10 mg daily, ACEI 10 mg daily, hydralazine 10 mg 3 times daily with hold parameters
# HLD
Continue atorvastatin 40 mg every afternoon, fenofibrate 160 mg at bedtime
# GERD
Continue Pepcid 20 mg at bedtime
# Chronic ambulatory dysfunction-uses wheelchair at baseline
PT/OT/case management eval
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
Patient oriented to name, place of living [facility], daughters Adamaris and Judy but not year
# Chronic visual impairment bilateral eyes
# glaucoma, macular degeneration left eye
Continue Cosopt, latanoprost
# h/o UTI
# Obesity due to excess calorie consumption/immobility
BMI 35
Low-fat diet weight loss recommended
DVT prophylaxis: Continue ACUTE SPECIALIST Eliquis
DNR per paper on chart with family at bedside
DW daughter Adamaris on the phone. She prefers pt to return to her room and not SNF
Anticipated Discharge: Within 24 hours
Subjective/Interval History
-
Date of Service: May 09, 2024
Objective Data
-
Labs:
Laboratory Results
05/09/24
07:50
WBC 13.1 H
Hgb 11.6 L
Hct 34.4 L
Plt Count 256
Sodium 135
Potassium 4.6
Chloride 113 H
Carbon Dioxide 16 L
BUN 21 H
Creatinine 0.8
Glucose 111 H
Calcium 8.4
Vital Signs:
Vital Signs
Temp Pulse Resp BP Pulse Ox
36.6 C 61 18 142/59 97
05/09/24 11:11 05/09/24 11:11 05/09/24 11:11 05/09/24 11:11 05/09/24 11:11
I&O
05/08/24 05/09/24 05/10/24
06:59 06:59 06:59
Intake Total 480 / 480 480 / 480
Balance 480 / 480 480 / 480
Review of Systems
-
All other systems: Reviewed and negative
Skin: Reports Rash (L leg)
Physical Exam
-
General: Well Developed, Well Nourished, No Apparent Distress, Comfortable, Appears Chronically Ill and Obese
HEENT: Normocephalic and Atraumatic
Respiratory: Clear to Auscultation and Non Labored Respirations; Negative Accessory Resp Muscle Use
Cardiac: Regular Rhythm and S1/S2; Negative Murmur
GI: Soft, Nontender, Nondistended and Normal Bowel Sounds
Musculoskeletal: No Clubbing and No Cyanosis
Skin: Rash (L leg) and Other (see wound care note )
Neuro: Awake and Alert
Psych: Calm
Data Reviewed
-
Labs: Labs Reviewed by me
[2024-05-09 11:41] LABS: Glucose - Point of Care 165 mg/dl (70-99)
[2024-05-09] MEDS: FLUSH (NSS) 2 FLUSH IV ×2 (13:13→13:14)
[2024-05-09] MEDS: NOVOLOG FLEXPEN-LOW RESISTANCE 1 UNITS SC ×2 (13:33→17:09)
[2024-05-09 15:06] VITALS: BP 145/59
[2024-05-09 16:39] LABS: Glucose - Point of Care 166 mg/dl (70-99)
[2024-05-09] MEDS: LIPITOR 40 MG PO (17:58)
[2024-05-09 19:42] VITALS: BP 161/74
[2024-05-09] MEDS: TRICOR 145 MG PO (19:55)
[2024-05-09] MEDS: PEPCID 20 MG PO (19:55)
[2024-05-09 21:15] LABS: Glucose - Point of Care 225 mg/dl (70-99)
[2024-05-09 23:50] VITALS: BP 151/71
[2024-05-10 03:00] VITALS: BP 150/64
[2024-05-10] MEDS: ANCEF 5 IV ×3 (03:08→19:47)
[2024-05-10] MEDS: VANCOCIN 275 MG IV (05:05)
[2024-05-10 06:00] VITALS: BMI 35.1
[2024-05-10 07:47] LABS: Glucose - Point of Care 162 mg/dl (70-99)
[2024-05-10] MEDS: APRESOLINE 10 MG PO ×3 (08:50→18:28)
[2024-05-10] MEDS: NOVOLOG FLEXPEN-LOW RESISTANCE 1 UNITS SC ×2 (08:50→13:11)
[2024-05-10] MEDS: TYLENOL 650 MG PO ×2 (08:51→21:37)
[2024-05-10] MEDS: ZESTRIL 10 MG PO (08:51)
[2024-05-10] MEDS: NORVASC 10 MG PO (08:51)
[2024-05-10] MEDS: FLORASTOR 250 MG PO ×2 (08:51→19:48)
[2024-05-10] MEDS: ELIQUIS 5 MG PO ×2 (08:52→18:28)
[2024-05-10] MEDS: COSOPT EYE DROPS 1 DROP BOTH EYES ×2 (08:52→18:28)
[2024-05-10 09:15] LABS: % Basophils 0.6 % (0-2); % Eosinophils 1.7 % (0-6); % Immature Granulocytes 1.8 % (0-0.5); % Lymphocytes 14.9 % (20.5-51.1); % Monocytes 6.5 % (1.7-9.3); % Neutrophils 74.5 % (42.2-75.2); Absolute Basophils 0.1 10^3/uL (0-0.2); Absolute Eosinophils 0.2 10^3/uL (0-0.7); Absolute Immature Granulocytes 0.2 10^3/uL (0-0.05); Absolute Lymphocytes 1.5 10^3/uL (1.2-3.4); Absolute Monocytes 0.7 10^3/uL (0.1-0.6); Absolute Neutrophils 7.7 10^3/uL (1.4-6.5); Hematocrit 36.3 % (37.0-47.0); Hemoglobin 12.3 g/dL (12.0-16.0); Mean Corp Hgb Conc. 33.9 g/dL (33.0-37.0); Mean Corpuscular Hgb 28.3 pg (27.0-31.0); Mean Corpuscular Volume 83.6 fL (81.0-99.0); Mean Platelet Volume 9.2 fL (7.4-10.4); Nucleated Red Blood Cells % 0 %; Platelet Count 328 10^3/uL (130-400); Red Blood Cell Count 4.34 10^6/uL (4.20-5.40); Red Cell Dist. Width 14.7 % (11.5-14.5); White Blood Cell Count 10.4 10^3/uL (4.8-10.8)
--- NOTE | 2024-05-10 09:40 | W.PN.HOSP.TC ---
Addendum entered and electronically signed by Concha Rocha MD 05/10/24 15:20:
Continue IV antibiotics during hospital stay for better bioavailability and healing of left leg cellulitis with blister of dorsal foot.
Original Note:
Today's Communication/Plan
-
see A/P
Assessment / Plan
Assessment / Plan
HPI: 88-year-old female from [facility] with H permanent A-fib, moderate aortic stenosis, complete heart block s/p PPM, DM2, chronic pain syndrome, HTN, HLD, GERD, chronic ambulatory dysfunction, memory impairment per
family, chronic visual impairment, glaucoma, macular degeneration left eye, obesity; p/w left foot pain with a large blister and extending erythema up her entire left leg.
A/P:
# Sepsis POA 2/2 left leg cellulitis with blister to dorsal foot
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
Blister drained in ER, wound culture positive for Group C Strep
blood culture negative
IV Ancef, Vancomycin to change to PO Keflex and Doxycycline for 11 more days after discharge
Wound care consulted
# hypoglycemia admission
# DM 2
A1C 6.0% from 03/2024
Hold metformin 500 mg twice daily during hospital stay
Would discontinue [employer] glipizide 5 mg daily going forward
cover with ISS
# Permanent A-fib
# Complete heart block s/p PPM placement
# Moderate aortic stenosis
2D echo 03/09/2023: EF 70%, mild LVH, hyperdynamic LV SF, no wall abnormalities, mild enlargement of right ventricle, mild dilated left and dilated right atrium, trace MR
# Chronic pain syndrome continue Lidoderm patch
# HTN urgency , resolved
BP stable on [employer] Norvasc 10 mg daily, ACEI 10 mg daily, hydralazine 10 mg 3 times daily with hold parameters
# HLD
Continue atorvastatin 40 mg every afternoon, fenofibrate 160 mg at bedtime
# GERD
Continue Pepcid 20 mg at bedtime
# Chronic ambulatory dysfunction-uses wheelchair at baseline
PT/OT/case management eval
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
Patient oriented to name, place of living [facility], daughters Adamaris and Judy but not year
# Chronic visual impairment bilateral eyes
# glaucoma, macular degeneration left eye
Continue Cosopt, latanoprost
# h/o UTI
# Obesity due to excess calorie consumption/immobility
BMI 35
Low-fat diet weight loss recommended
DVT prophylaxis: Continue [employer] Eliquis
DNR per paper on chart with family at bedside
DW daughter Adamaris on the phone. She prefers pt to return to her room and not SNF
DW RN
Anticipated Discharge: Today
Subjective/Interval History
-
Date of Service: May 10, 2024
Objective Data
-
Labs:
Laboratory Results
05/10/24
08:41
WBC 10.4
Hgb 12.3
Hct 36.3 L
Plt Count 328 D
Sodium Pending
Potassium Pending
Chloride Pending
Carbon Dioxide Pending
BUN Pending
Creatinine Pending
Glucose Pending
Calcium Pending
Vital Signs:
Vital Signs
Temp Pulse Resp BP Pulse Ox
36.7 C 60 24 170/74 96
05/10/24 07:40 05/10/24 07:40 05/10/24 07:40 05/10/24 08:51 05/10/24 07:40
I&O
05/09/24 05/10/24 05/11/24
06:59 06:59 06:59
Intake Total 480 / 480 970 / 970
Output Total 1000 / 1000
Balance 480 / 480 -30 / -30
Review of Systems
-
All other systems: Reviewed and negative
Skin: Reports Rash (L leg)
Physical Exam
-
General: Well Developed, Well Nourished, No Apparent Distress, Comfortable, Appears Chronically Ill and Obese
HEENT: Normocephalic and Atraumatic
Respiratory: Clear to Auscultation and Non Labored Respirations; Negative Accessory Resp Muscle Use
Cardiac: Regular Rhythm and S1/S2; Negative Murmur
GI: Soft, Nontender, Nondistended and Normal Bowel Sounds
Musculoskeletal: No Clubbing and No Cyanosis
Skin: Rash (L leg) and Other (see wound care note )
Neuro: Awake and Alert
Psych: Calm and Apparent Dementia
Data Reviewed
-
Labs: Labs Reviewed by me
[2024-05-10 10:38] LABS: Blood Urea Nitrogen 20 mg/dl (7-17); Calcium 8.3 mg/dl (8.4-10.2); Carbon Dioxide 16 mmol/L (22-30); Chloride 111 mmol/L (98-107); Estimated Creatinine Clearance 60 ml/min; Glucose 139 mg/dl (70-99); Sodium 136 mmol/L (135-145); eGFR > 60.00
[2024-05-10 10:49] LABS: Potassium 4.5 mmol/L (3.5-5.1)
[2024-05-10 11:30] VITALS: BP 136/56
--- NOTE | 2024-05-10 12:40 | WOUNDNOTE ---
[facility] RN note: Patient's LLE erythema less than previous wound pics. L dorsal foot serous blister remains the same, opaque appearing with large amount of drainage. Some purpura/petechia noted on L medial foot. +Pedal pulses heard via portable Doppler.
L foot dressing changed. Skin on heels intact. She has her legs elevated in a recliner chair. Air chair cushion in chair. Prevalence team (nurse Linda) checked her sacral skin today, no pressure injury reported. L knee high Tyshawn wrap reapplied.
Patient tolerated well. Current wound care appropriate. Updated Dr. Rocha via tiger text including wound pics; asked if domestic technician could be considered to evaluate foot blister for debridement. Dr. Rocha responded she spoke with daughter and plan is
follow up with her domestic technician at her NH. Patient for possible discharge today or tomorrow.
[2024-05-10 13:04] LABS: Glucose - Point of Care 151 mg/dl (70-99)
--- NOTE | 2024-05-10 13:05 | CM ---
Addendum entered by Shania Woodson 05/11/24 10:56:
CM notified of 12noon merchandise pickup/receiving associate time via w/c van. Daughter contacted and notified of $95 cost for w/c van and phone number to call with payment ([phone]).
Addendum entered by Shania Woodson 05/11/24 10:12:
SNF authorization obtained #[id number] for SOC 05/11/2024; NRD 05/16/2024. W/C van transport being arranged. Await transport time; Daughter to be notified of cost $95 to be paid via phone [phone].
[facility]ina Mcc[facility] contact:
Report: [phone]

Original Note:
CM notified by Trina Mccarty that Jasmyn cannot return today. notified of same and daughter called to advise of this as well.
CM to facilitate discharge to [facility] tomorrow, 05/11/2024.
Plan: Discharge to [facility] in AM; insurance authorization for SNF and transport will be obtained.
[2024-05-10] MEDS: FLUSH (NSS) 2 FLUSH IV (13:10)
--- NOTE | 2024-05-10 14:49 | PHA.VAN.FU ---
Vancomycin Assessment / Plan
- Assessment
Renal Function: Stable
WBC's are: WNL
In the past 24 hrs, patient has been: Afebrile
Concomitant Antimicrobials: cefazolin
- Dosing Plan
Continue: Vanc 1250mg Q24H
- Monitoring Plan
No level(s) ordered at this time: hold off on levels given possible switch to PO antibiotics
- Follow Up
Pharmacy will continue to follow.
Vancomycin Follow UP
- -
Patient Age: 88
Patient Sex: Female
Vancomycin Day #: 3
Indication: Skin And Soft Tissue
Requesting Provider: Dr. Rocha
Pertinent Antimicrobial Allergies:
NKDA
Height / Weight:
Height 5 ft 3 in
Actual Weight 89.953 kg
Pertinent Past Medical History: BMI ~35, wheelchair bound, DM 2
- Vital Signs / Lab Results
Temp Pulse Resp BP Pulse Ox
98.0 F 81 16 136/56 97
05/10/24 11:30 05/10/24 11:30 05/10/24 11:30 05/10/24 13:12 05/10/24 11:30
Lab Results - Hematology
05/07/24 05/08/24 05/09/24
19:52 07:07 07:50
WBC 21.7 H 16.2 H 13.1 H
05/10/24
08:41
WBC 10.4
Lab Results - Chemistry
05/07/24 05/07/24 05/08/24
19:52 20:23 07:07
BUN Cancelled 27 H 22 H
Creatinine Cancelled 0.9 0.8
Estimated Creat Clear Cancelled 47 53
Albumin Cancelled Cancelled
05/09/24 05/10/24
07:50 08:41
BUN 21 H 20 H
Creatinine 0.8 0.7
Estimated Creat Clear 53 60
Albumin
05/07/24 05/07/24
19:52 23:15
Lactic Acid 1.0 Cancelled
Microbiology Results
05/08/24 00:32 Wound Culture - Final
Foot - Left Group C Streptococcus
Gram Stain - Final
05/07/24 19:52 Blood Culture - Preliminary
Blood/Venous No Growth in 48 hours- Final report to follow
05/08/24 00:29 MRSA Screen - Final
Nose No Methicillin Resistant Staphylococcus aureus isolated.
[2024-05-10 17:44] LABS: Glucose - Point of Care 142 mg/dl (70-99)
[2024-05-10] MEDS: NOVOLOG FLEXPEN-LOW RESISTANCE SC (17:54)
[2024-05-10] MEDS: LIPITOR 40 MG PO (18:28)
[2024-05-10 19:30] VITALS: BP 173/65
[2024-05-10] MEDS: PEPCID 20 MG PO (19:48)
[2024-05-10] MEDS: TRICOR 145 MG PO (19:48)
[2024-05-10 21:34] LABS: Glucose - Point of Care 152 mg/dl (70-99)
[2024-05-10 23:58] VITALS: BP 148/59
[2024-05-11 03:35] VITALS: BP 152/69
[2024-05-11] MEDS: ANCEF 5 IV (03:57)
[2024-05-11] MEDS: VANCOCIN 275 MG IV (05:05)
[2024-05-11 06:00] VITALS: BMI 32.3
[2024-05-11 07:40] VITALS: BP 183/74
[2024-05-11 07:47] LABS: Glucose - Point of Care 134 mg/dl (70-99)
[2024-05-11 08:04] LABS: Blood Urea Nitrogen 15 mg/dl (7-17); Calcium 8.7 mg/dl (8.4-10.2); Carbon Dioxide 19 mmol/L (22-30); Chloride 112 mmol/L (98-107); Estimated Creatinine Clearance 58 ml/min; Glucose 126 mg/dl (70-99); Potassium 4.4 mmol/L (3.5-5.1); Sodium 137 mmol/L (135-145); eGFR > 60.00
[2024-05-11 08:07] LABS: % Basophils 0.5 % (0-2); % Eosinophils 1.8 % (0-6); % Immature Granulocytes 1.6 % (0-0.5); % Lymphocytes 19.6 % (20.5-51.1); % Monocytes 7.2 % (1.7-9.3); % Neutrophils 69.3 % (42.2-75.2); Absolute Basophils 0.1 10^3/uL (0-0.2); Absolute Eosinophils 0.2 10^3/uL (0-0.7); Absolute Immature Granulocytes 0.2 10^3/uL (0-0.05); Absolute Lymphocytes 1.9 10^3/uL (1.2-3.4); Absolute Monocytes 0.7 10^3/uL (0.1-0.6); Absolute Neutrophils 6.8 10^3/uL (1.4-6.5); Hematocrit 37.3 % (37.0-47.0); Hemoglobin 12.3 g/dL (12.0-16.0); Mean Corpuscular Hgb 27.5 pg (27.0-31.0); Mean Corpuscular Volume 83.3 fL (81.0-99.0); Mean Platelet Volume 9.1 fL (7.4-10.4); Nucleated Red Blood Cells % 0 %; Platelet Count 394 10^3/uL (130-400); Red Blood Cell Count 4.48 10^6/uL (4.20-5.40); Red Cell Dist. Width 14.6 % (11.5-14.5); White Blood Cell Count 9.8 10^3/uL (4.8-10.8)
[2024-05-11] MEDS: NOVOLOG FLEXPEN-LOW RESISTANCE SC (08:19)
[2024-05-11] MEDS: ELIQUIS 5 MG PO (08:22)
[2024-05-11] MEDS: ZESTRIL 10 MG PO (08:22)
[2024-05-11] MEDS: APRESOLINE 10 MG PO (08:22)
[2024-05-11] MEDS: NORVASC 10 MG PO (08:22)
[2024-05-11] MEDS: FLORASTOR 250 MG PO (08:22)
[2024-05-11] MEDS: COSOPT EYE DROPS 1 DROP BOTH EYES (08:23)
--- NOTE | 2024-05-11 11:08 | W.PN.HOSP.TC ---
Addendum entered and electronically signed by Concha Rocha MD 05/11/24 13:36:
total DC time 36 min
Original Note:
Today's Communication/Plan
-
see A/P
Assessment / Plan
Assessment / Plan
HPI: 88-year-old female from [facility] with PMH permanent A-fib, moderate aortic stenosis, complete heart block s/p PPM, DM2, chronic pain syndrome, HTN, HLD, GERD, chronic ambulatory dysfunction, memory impairment per
family, chronic visual impairment, glaucoma, macular degeneration left eye, obesity; p/w left foot pain with a large blister and extending erythema up her entire left leg.
A/P:
# Sepsis POA 2/2 left leg cellulitis with blister to dorsal foot
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
Blister drained in ER, wound culture positive for Group C Strep
blood culture negative
IV Ancef/Vancomycin to change to PO Keflex and Doxycycline for 11 more days after discharge
Wound care on board
informed daughter to have pt follow with head of marketing adometry immediately upon discharge for skin debridement of blister wound (this can be done outpt)
# hypoglycemia admission
# DM 2
A1C 6.0% from 03/2024
Hold metformin 500 mg twice daily during hospital stay
Would discontinue H[employer] glipizide 5 mg daily going forward
cover with ISS
# Permanent A-fib
# Complete heart block s/p PPM placement
# Moderate aortic stenosis
2D echo 03/09/2023: EF 70%, mild LVH, hyperdynamic LV SF, no wall abnormalities, mild enlargement of right ventricle, mild dilated left and dilated right atrium, trace MR
# Chronic pain syndrome continue Lidoderm patch
# HTN urgency , resolved
BP stable on HOT[employer]EL RECEPT[employer]IST Norvasc 10 mg daily, ACEI 10 mg daily, hydralazine 10 mg 3 times daily with hold parameters
# HLD
Continue atorvastatin 40 mg every afternoon, fenofibrate 160 mg at bedtime
# GERD
Continue Pepcid 20 mg at bedtime
# Chronic ambulatory dysfunction-uses wheelchair at baseline
PT/OT/case management eval
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
Patient oriented to name, place of living [facility], daughters Adamaris and Judy but not year
# Chronic visual impairment bilateral eyes
# glaucoma, macular degeneration left eye
Continue Cosopt, latanoprost
# h/o UTI
# Obesity due to excess calorie consumption/immobility
BMI 35
Low-fat diet weight loss recommended
DVT prophylaxis: Continue HOTEL OR MOTEL RE[employer]IST Eliquis
DNR per paper on chart with family at bedside
DW daughter Adamaris on the phone. She prefers pt to return to her room and not SNF
DW RN
Anticipated Discharge: Today
Subjective/Interval History
-
Date of Service: May 11, 2024
Objective Data
-
Labs:
Laboratory Results
05/11/24
07:00
WBC 9.8
Hgb 12.3
Hct 37.3
Plt Count 394 D
Sodium 137
Potassium 4.4
Chloride 112 H
Carbon Dioxide 19 L
BUN 15
Creatinine 0.7
Glucose 126 H
Calcium 8.7
Vital Signs:
Vital Signs
Temp Pulse Resp BP Pulse Ox
36.9 C 61 16 183/74 98
05/11/24 07:40 05/11/24 08:22 05/11/24 07:40 05/11/24 08:22 05/11/24 07:40
I&O
05/10/24 05/11/24 05/12/24
06:59 06:59 06:59
Intake Total 970 / 970 740 / 990 250 / 250
Output Total 1000 / 1000 1000 / 15583 9300 / 9300
Balance -30 / -30 -260 / -9310 -9050 / -9050
Review of Systems
-
All other systems: Reviewed and negative
Skin: Reports Rash (L leg)
Physical Exam
-
General: Well Developed, Well Nourished, No Apparent Distress, Comfortable, Appears Chronically Ill and Obese
HEENT: Normocephalic and Atraumatic
Respiratory: Clear to Auscultation and Non Labored Respirations; Negative Accessory Resp Muscle Use
Cardiac: Regular Rhythm and S1/S2; Negative Murmur
GI: Soft, Nontender, Nondistended and Normal Bowel Sounds
Musculoskeletal: No Clubbing and No Cyanosis
Skin: Rash (L leg) and Other (see wound care note )
Neuro: Awake and Alert
Psych: Calm and Apparent Dementia
Data Reviewed
-
Labs: Labs Reviewed by me
[2024-05-11 11:11] VITALS: BP 155/59
--- NOTE | 2024-05-11 13:27 | W.DCSUMMARY ---
Discharge Summary
Discharge Data
Date of Admission: 05/07/24
Date of Discharge: 05/11/24
-
Pending Results: No
Hospital Course
Principal Diagnosis:
Left leg cellulitis with blister of dorsal foot
Chronic Diagnoses:�
Permanent atrial fibrillation
Complete heart block status post pacemaker placement
Moderate aortic stenosis
Chronic pain syndrome continue Lidoderm patch
Essential hypertension
Hyperlipidemia
Gastroesophageal reflux disease
Chronic ambulatory dysfunction- uses wheelchair at baseline
Mild chronic memory impairment/mild cognitive impairment
Chronic visual impairment bilateral eyes
Glaucoma, macular degeneration left eye
Obesity due to excess calorie consumption/immobility
[id number]-[id number] diabetes
Consultations:�
None
Procedures:�
None
Clinical course:�
This is a 88-year-old female from [facility] with past medical history as stated above, who presented with left foot pain with a large blister on the dorsum foot. She also had ascending erythema, and was admitted for cellulitis.
Problem 1:
Sepsis due to left leg cellulitis with blister to dorsal foot.
Her foot x-ray was negative for osteomyelitis.
The blister was drained in ER, and wound culture was positive for Group C Strep.
She received IV Ancef/Vancomycin while in the hospital, and can continue with PO Keflex and Doxycycline for 11 more days after discharge.
She can follow-up with her outpatient bander and cellophaner machine closely following discharge for debridement of the skin surrounding the blister.
Problem 2:
Hypoglycemia on admission.
Her A1C was at 6.0% from 03/2024.
Her prior to admission glipizide 5 mg daily was discontinued, she can continue with metformin 500 mg twice daily following discharge.
As for the rest of her medical problems, they were stable during her hospital stay.
Discharge Plan
-
Patient Disposition: Home with Home Care
Discharge Diagnosis/Procedures: Left leg cellulitis with blister to dorsal foot; hypoglycemia on admission (resolved)
Condition: Fair
Diet: As tolerated and Diabetic, Carb Controlled
Activity: As tolerated
Driving Restrictions: Not until seen by your Dr
Wound Care: Wound Care Instructions
L foot: clean with saline, adaptic, alginate(for increased drainage), gauze, ABD pad and kerlix recommend twice a day dressing changes until drainage less then once a day.
Tyshawn wrap forefoot to below knee daily as tolerated, can remove at bedtime.
Leg elevation when sitting with pillows under L leg
Increase protein in diet to help with wound healing
Follow up at wound care center if not healing, call for an appointment.
Activity Restrictions/Additional Instructions:
Follow-up with your bander and cellophaner machine immediately for debridement of your skin tissues
Referrals:
Preston Rivero DO [Family Provider] - in less than 1 week
Additional Discharge Medication Instructions: discontinue glipizide due to hypoglycemia on admission
Continue Keflex and Doxycycline for 11 more days after discharge
Prescriptions:
New
doxycycline hyclate 100 mg capsule
100 mg PO BID 11 Days Qty: 22 0RF
Continued
latanoprost 0.005 % Drops
1 drp BOTH EYES HS
atorvastatin 40 mg Tablet
40 mg PO QPM
acetaminophen 325 mg Tablet
650 mg PO Q4HPRN PRN (Reason: mild pain/fever>100.4)
magnesium hydroxide [Milk of Magnesia] 400 mg/5 mL Suspension
30 ml PO DAILYPRN PRN (Reason: if no bm x 2 days)
bisacodyl [Dulcolax (bisacodyl)] 10 mg Suppository
[address] DAILYPRN PRN (Reason: if mom ineffective)
nitroglycerin [Nitrostat] 0.4 mg Tablet, Sublingual
0.4 mg SUBLINGUAL Q5MX3 PRN (Reason: chest pain)
dorzolamide-timolol [Cosopt] 22.3-6.8 mg/mL Drops
1 drp BOTH EYES BID@
fenofibrate 160 mg Tablet
160 mg PO HS
apixaban 5 mg Tablet
5 mg PO BID@
potassium chloride 20 mEq Tablet Extended Release
40 meq PO DAILY
metformin 500 mg Tablet
500 mg PO BID@
benazepril 10 mg tablet
10 mg PO DAILY 30 Days Qty: 30 0RF
hydralazine 10 mg tablet
10 mg PO TID@829,1329,1829
meclizine 12.5 mg Tablet
12.5 mg PO [id number] PRN (Reason: dizziness)
famotidine 20 mg tablet
20 mg PO HS
amlodipine 10 mg tablet
10 mg PO DAILY
furosemide 20 mg tablet
20 mg PO DAILYPRN PRN (Reason: edema)
fluticasone propionate 50 mcg/actuation [place],Suspension
1 spray INTRANASAL TIDPRN PRN (Reason: nasal congestion)
Saccharomyces boulardii 250 mg Capsule
250 mg PO BID
cephalexin 500 mg capsule
500 mg PO Q6H 11 Days Qty: 44 0RF
Rx Instructions:
@ 0000, 0600, 1200, 1800
Discontinued
glipizide 5 mg tablet extended release 24hr
5 mg PO DAILY
Discharge Orders:
Discharge Patient (As Directed); Ordered 05/10/24
Ordered By: Concha Rocha
Discharge Date and Time
Discharge Date/Time: 05/11/24 12:21
Print Language: POLISH
== END 2024-05-11 12:21 | DRG 872 ==
LOC: 4 EAST ACU 22:32
PROVIDERS: Clinical Nurse Specialist Family Health; ADMITTING PHYSICIAN Internal Medicine; ATTENDING PHYSICIAN Internal Medicine; EMERGENCY PHYSICIAN Student in an Organized Health Care Education/Training Program; FAMILY PHYSICIAN Student in an Organized Health Care Education/Training Program
PROC: 0H9NXZZ Drainage of Left Foot Skin, External Approach (ICD-10-PCS; 2024-05-07)
DX: A41.9 Sepsis, unspecified organism (principal); L03.116 Cellulitis of left lower limb; I48.21 Permanent atrial fibrillation; I44.2 Atrioventricular block, complete; I35.0 Nonrheumatic aortic (valve) stenosis; E11.42 Type 2 diabetes mellitus with diabetic polyneuropathy; E11.649 Type 2 diabetes mellitus with hypoglycemia without coma; Z66 Do not resuscitate; K21.9 Gastro-esophageal reflux disease without esophagitis; I10 Essential (primary) hypertension; S90.822A Blister (nonthermal), left foot, initial encounter; R26.89 Other abnormalities of gait and mobility; I16.0 Hypertensive urgency; H54.7 Unspecified visual loss; H40.9 Unspecified glaucoma; H35.30 Unspecified macular degeneration; G89.4 Chronic pain syndrome; E78.00 Pure hypercholesterolemia, unspecified; G31.84 Mild cognitive impairment of uncertain or unknown etiology; B95.4 Other streptococcus as the cause of diseases classified elsewhere; E66.09 Other obesity due to excess calories; Z68.35 Body mass index [BMI] 35.0-35.9, adult; Z79.01 Long term (current) use of anticoagulants; Z79.84 Long term (current) use of oral hypoglycemic drugs; Z79.899 Other long term (current) drug therapy; Z95.0 Presence of cardiac pacemaker; X58.XXXA Exposure to other specified factors, initial encounter
CPT/HCPCS: 73630; 80048; 82962; 83605; 83735; 85025; 87040; 87070; 87077; 87147; 87205; 96361; 96374; 97163; 97167; 97530; 99285

== ENCOUNTER → 2024-06-26 09:14 | Outpatient (REF) | payer OTHER, SELFPAY | LOC: RAD 09:14 | PROVIDERS: ATTENDING PHYSICIAN Surgery Vascular Surgery; FAMILY PHYSICIAN Student in an Organized Health Care Education/Training Program | DX: I73.9 Peripheral vascular disease, unspecified (principal) | CPT/HCPCS: 75635; 93970; Q9967 ==

== ENCOUNTER → 2024-07-18 11:23 | Outpatient (REF) | payer OTHER, SELFPAY ==
[2024-07-18 13:26] LABS: Glycohemoglobin (HgbA1c) 5.8 % (4.0-5.6)
== END ==
LOC: OLABN 11:23
PROVIDERS: ATTENDING PHYSICIAN Student in an Organized Health Care Education/Training Program
DX: I10 Essential (primary) hypertension (principal); Z79.84 Long term (current) use of oral hypoglycemic drugs
CPT/HCPCS: 36415; 83036

== ENCOUNTER → 2024-12-04 07:40 | Outpatient (REF) | payer MEDICARE, MEDICAID, SELFPAY | LOC: RAD 07:40 | PROVIDERS: ATTENDING PHYSICIAN Surgery Vascular Surgery | DX: I73.9 Peripheral vascular disease, unspecified (principal) | CPT/HCPCS: 93922; 93925 ==

== ENCOUNTER → 2025-01-10 09:49 | Outpatient (REF) | payer MEDICARE, MEDICAID, SELFPAY ==
[2025-01-10 11:55] LABS: NT-proBNP 1470 pg/ml
[2025-01-10 12:01] LABS: ALT (SGPT) 14 U/L (0-35); AST (SGOT) 18 U/L (14-36); Albumin 3.6 g/dl (3.5-5.0); Alkaline Phosphatase 48 U/L (38-126); Blood Urea Nitrogen 22 mg/dl (7-17); Calcium 9.4 mg/dl (8.4-10.2); Carbon Dioxide 18 mmol/L (22-30); Chloride 107 mmol/L (98-107); Glucose 116 mg/dl (70-99); Sodium 137 mmol/L (135-145); Total Bilirubin 0.9 mg/dl (0.2-1.3); Total Protein 6.2 g/dl (6.3-8.2); eGFR > 60.00
== END ==
LOC: OLABN 09:49
PROVIDERS: ATTENDING PHYSICIAN Student in an Organized Health Care Education/Training Program
DX: I48.19 Other persistent atrial fibrillation (principal)
CPT/HCPCS: 36415; 80053; 83880

== ENCOUNTER → 2025-01-14 13:12 | Outpatient (REF) | payer MEDICARE, MEDICAID, SELFPAY ==
[2025-01-14 14:29] LABS: Blood Urea Nitrogen 19 mg/dl (7-17); Calcium 9.6 mg/dl (8.4-10.2); Carbon Dioxide 21 mmol/L (22-30); Chloride 105 mmol/L (98-107); Glucose 132 mg/dl (70-99); Potassium 3.9 mmol/L (3.5-5.1); Sodium 137 mmol/L (135-145); eGFR > 60.00
== END ==
LOC: OLABN 13:12
PROVIDERS: ATTENDING PHYSICIAN Student in an Organized Health Care Education/Training Program
DX: I10 Essential (primary) hypertension (principal)
CPT/HCPCS: 36415; 80048

== ENCOUNTER → 2025-02-12 08:53 | Outpatient (REF) | payer MEDICARE, OTHER, SELFPAY ==
[2025-02-12 10:37] LABS: Blood Urea Nitrogen 19 mg/dl (7-17); Calcium 9.1 mg/dl (8.4-10.2); Carbon Dioxide 19 mmol/L (22-30); Chloride 111 mmol/L (98-107); Glucose 121 mg/dl (70-99); Potassium 4.2 mmol/L (3.5-5.1); Sodium 141 mmol/L (135-145); eGFR > 60.00
[2025-02-12 10:44] LABS: NT-proBNP 1800 pg/ml
== END ==
LOC: OLABN 08:53
PROVIDERS: ATTENDING PHYSICIAN Student in an Organized Health Care Education/Training Program
DX: I50.32 Chronic diastolic (congestive) heart failure (principal)
CPT/HCPCS: 36415; 80048; 83880

== ENCOUNTER → 2025-02-18 09:34 | Outpatient (REF) | payer MEDICARE, OTHER, SELFPAY ==
[2025-02-18 10:06] LABS: Blood Urea Nitrogen 17 mg/dl (7-17); Calcium 9.3 mg/dl (8.4-10.2); Carbon Dioxide 20 mmol/L (22-30); Chloride 110 mmol/L (98-107); Glucose 124 mg/dl (70-99); Potassium 3.9 mmol/L (3.5-5.1); Sodium 140 mmol/L (135-145); eGFR > 60.00
[2025-02-18 10:13] LABS: NT-proBNP 1560 pg/ml
== END ==
LOC: OLABN 09:34
PROVIDERS: ATTENDING PHYSICIAN Student in an Organized Health Care Education/Training Program
DX: I50.32 Chronic diastolic (congestive) heart failure (principal)
CPT/HCPCS: 36415; 80048; 83880

== ENCOUNTER → 2025-03-27 10:53 | Outpatient (REF) | payer MEDICARE, OTHER, SELFPAY ==
[2025-03-27 12:32] LABS: HDL Cholesterol 36 mg/dl; LDL Cholesterol, Calculated 48 mg/dl; Total Cholesterol 105 mg/dl (50-199); Triglyceride 106 mg/dl (10-149); Very Low Density Lipoprotein 21 mg/dl (0-30)
== END ==
LOC: OLABN 10:53
PROVIDERS: ATTENDING PHYSICIAN Student in an Organized Health Care Education/Training Program
DX: E78.5 Hyperlipidemia, unspecified (principal)
CPT/HCPCS: 36415; 80061

== ENCOUNTER → 2025-06-03 09:20 | Outpatient (REF) | payer MEDICARE, OTHER, SELFPAY | LOC: OLABN 09:20 | PROVIDERS: ATTENDING PHYSICIAN Student in an Organized Health Care Education/Training Program | DX: R19.7 Diarrhea, unspecified (principal) | CPT/HCPCS: 87324; 87449 ==

== ENCOUNTER → 2025-06-20 10:52 | Outpatient (REF) | payer MEDICARE, OTHER, SELFPAY ==
[2025-06-20 11:04] LABS: Hematocrit 41.9 % (37.0-47.0); Hemoglobin 13.3 g/dL (12.0-16.0); Mean Corp Hgb Conc. 31.7 g/dL (33.0-37.0); Mean Corpuscular Volume 87.5 fL (81.0-99.0); Nucleated Red Blood Cells % 0 %; Platelet Count 273 10^3/uL (130-400); Red Cell Dist. Width 14.6 % (11.5-14.5)
[2025-06-20 11:15] LABS: Magnesium 1.7 mg/dl (1.6-2.3)
== END ==
LOC: OLABN 10:52
PROVIDERS: ATTENDING PHYSICIAN Student in an Organized Health Care Education/Training Program
DX: I50.32 Chronic diastolic (congestive) heart failure (principal)
CPT/HCPCS: 36415; 83735; 85025

== ENCOUNTER → 2025-07-08 14:14 | Outpatient (REF) | payer MEDICARE, OTHER, SELFPAY | LOC: RAD 14:14 | PROVIDERS: ATTENDING PHYSICIAN Registered Nurse; FAMILY PHYSICIAN Student in an Organized Health Care Education/Training Program | DX: I73.9 Peripheral vascular disease, unspecified (principal) | CPT/HCPCS: 93922; 93925 ==

== ENCOUNTER → 2025-07-17 11:55 | Outpatient (REF) | payer MEDICARE, OTHER, SELFPAY ==
[2025-07-17 13:47] LABS: Glycohemoglobin (HgbA1c) 6.7 % (4.0-5.6)
== END ==
LOC: OLABN 11:55
PROVIDERS: ATTENDING PHYSICIAN Student in an Organized Health Care Education/Training Program
DX: E11.42 Type 2 diabetes mellitus with diabetic polyneuropathy (principal); E11.65 Type 2 diabetes mellitus with hyperglycemia; Z79.84 Long term (current) use of oral hypoglycemic drugs
CPT/HCPCS: 36415; 83036

== ENCOUNTER 2025-08-07 07:20 | Outpatient (RCR) | payer MEDICARE, OTHER, SELFPAY | END 2025-08-07 23:59 | disposition home or self-care (01) | LOC: RPT 07:20 | PROVIDERS: ATTENDING PHYSICIAN Registered Nurse; FAMILY PHYSICIAN Student in an Organized Health Care Education/Training Program | DX: I89.0 Lymphedema, not elsewhere classified (principal); Z73.6 Limitation of activities due to disability; R26.2 Difficulty in walking, not elsewhere classified | CPT/HCPCS: 97162; 97530; 97760 ==

== ENCOUNTER → 2025-09-19 18:45 | Outpatient (REF) | payer MEDICARE, OTHER, SELFPAY ==
[2025-09-20 13:02] LABS: Urine Character Cloudy (Clear)
[2025-09-20 13:11] LABS: Urine Squamous Cell 0-2 /LPF (Few); Urine White Cell 70-80 /HPF (0-5)
== END ==
LOC: OLABN 18:45
PROVIDERS: ATTENDING PHYSICIAN Student in an Organized Health Care Education/Training Program
DX: R30.9 Painful micturition, unspecified (principal)
CPT/HCPCS: 81003; 81015; 87077; 87086

== ENCOUNTER → 2025-10-08 10:23 | Outpatient (REF) | payer MEDICARE, OTHER, SELFPAY ==
[2025-10-08 13:49] LABS: Hematocrit 40.4 % (37.0-47.0); Hemoglobin 12.9 g/dL (12.0-16.0); Mean Corp Hgb Conc. 31.9 g/dL (33.0-37.0); Mean Corpuscular Volume 86.9 fL (81.0-99.0); Nucleated Red Blood Cells % 0 %; Platelet Count 328 10^3/uL (130-400); Red Cell Dist. Width 15.0 % (11.5-14.5)
[2025-10-08 14:40] LABS: Blood Urea Nitrogen 22 mg/dl (7-17); Calcium 9.5 mg/dl (8.4-10.2); Carbon Dioxide 20 mmol/L (22-30); Chloride 113 mmol/L (98-107); Glucose 122 mg/dl (70-99); Magnesium 1.9 mg/dl (1.6-2.3); Potassium 4.6 mmol/L (3.5-5.1); Sodium 137 mmol/L (135-145); eGFR > 60.00
== END ==
LOC: OLABN 10:23
PROVIDERS: ATTENDING PHYSICIAN Student in an Organized Health Care Education/Training Program
DX: I48.19 Other persistent atrial fibrillation (principal)
CPT/HCPCS: 36415; 80048; 83735; 85025

== ENCOUNTER → 2025-10-29 11:10 | Outpatient (REF) | payer MEDICARE, OTHER, SELFPAY ==
--- NOTE | 2025-10-29 12:30 | CARDSERVLU ---
Echocardiogram with [facility]ason completed after protocol screening completed. Allergies verified.
Patent IV site: __new start 22P LFA 1st attempt___
IV site flushed with 0.9% NaCl pre and post administration.
Diluted bolus method utilized to enhance visualization of ventricular womack.
Total volume given: __3.0__ mL
site dcd at completion of test.
Patient tolerated all procedures well without complications.
== END ==
LOC: RCS 11:10
PROVIDERS: ATTENDING PHYSICIAN Internal Medicine Cardiovascular Disease; FAMILY PHYSICIAN Student in an Organized Health Care Education/Training Program
DX: I44.2 Atrioventricular block, complete (principal)
CPT/HCPCS: 93306